=== PATIENT | male | born 1965 | race Caucasian/White ===

== ENCOUNTER 2021-05-19 12:03 | Emergency (ER) | payer BC ==
[~2021-05-19 12:03] MED LIST: AMBIEN 10 MG TA10 MG PO; ASPIRIN81 M2 PO; ATIVAN2 MG PO; BACTRIM DS TAB1 EACH PO; CARISOPRODOL 3350 MG PO; IBUPROFEN 200200 M1 PO; LISINOPRIL20 MG PO; MEDROLDOSEPACK PO; PERCOCET 5-3251 EACH PO; PRINIVIL20 MG PO; SERTRALINE HCL50 MG PO; TRAMADOL 50 MG50 MG PO
[2021-05-19] MEDS ORDERED: APAP W/CODEINE1 TA2 PO (13:16)
[2021-05-19] MEDS ORDERED: VENTOLIN HFA INH8 GM INH (13:16)
== END 2021-05-19 13:43 | disposition home or self-care (01) ==
LOC: ER 12:03
DX: U07.1 COVID-19 (principal); R09.81 Nasal congestion; I10 Essential (primary) hypertension; Z98.890 Other specified postprocedural states; Z90.49 Acquired absence of other specified parts of digestive tract; Z79.82 Long term (current) use of aspirin; Z79.1 Long term (current) use of non-steroidal anti-inflammatories (NSAID); Z79.899 Other long term (current) drug therapy